=== PATIENT | female | born 1950 | race Caucasian/White ===

== ENCOUNTER → 2016-08-01 | Outpatient (CLI) | payer MEDICARE, OTHER ==
[~2016-08-01] MED LIST: BUPIVACAINE 0.25% 30 ML SDV ONE; LIDOCAINE 1% 30 ML SDV ONE; NA BICARBONATE 50 MEQ/50 ML VIAL ONE
== END ==
LOC: FIMAGING 07:43
PROVIDERS: ATTEND Radiology Diagnostic Radiology
PROC: 3E023GC Introduction of Other Therapeutic Substance into Muscle, Percutaneous Approach (ICD-10-PCS; principal; 2016-08-01)
DX: M76.899 Other specified enthesopathies of unspecified lower limb, excluding foot (principal)

== ENCOUNTER → 2017-04-12 | Outpatient (CLI) | payer OTHER ==
[~2017-04-12] MED LIST changes: -LIDOCAINE 1% 30 ML SDV ONE; +LIDOCAINE 1% 300 MG/30 ML SDV ONE; -NA BICARBONATE 50 MEQ/50 ML VIAL ONE
== END ==
LOC: FIMAGING 08:05
PROVIDERS: ATTEND Orthopaedic Surgery
DX: M76.899 Other specified enthesopathies of unspecified lower limb, excluding foot (principal)

== ENCOUNTER → 2018-11-26 | Outpatient (CLI) | payer OTHER | LOC: EMCIMAGING 09:31 ==